=== PATIENT | male | born 1950 | race Caucasian/White ===

== ENCOUNTER → 2017-07-19 | Outpatient (CLI) | payer BC ==
[~2017-07-19] MED LIST: ACET50TAOT PO; ACET65TA OR; CETI10TA OR; CHLO125TA PO; LISI10TA4 OR; METF500T13 PO; PRIL20CA OR; ZANT300T OR; ZEST20TA4 OR; cosopt OU
[2017-07-19 11:00] LABS: MEAN CORPUSCULAR HGB CONC 33.9 g/dl (32.0-36.5); MEAN CORPUSCULAR VOLUME 94.2 fl (80.0-96.0); PLATELET COUNT, AUTOMATED 302 10^3/uL (150-450); RED CELL DISTRIBUTION WIDTH 12.7 % (11.5-14.5); WHITE BLOOD COUNT 8.1 10^3/uL (4.0-10.0)
[2017-07-19 11:19] LABS: INR 0.93
[2017-07-19 11:39] LABS: ALBUMIN 4.1 GM/DL (3.2-5.2); ALBUMIN/GLOBULIN RATIO 1.17 (1.00-1.93); ALKALINE PHOSPHATASE 58 U/L (45-117); ALT/SGPT 27 U/L (12-78); ANION GAP 9 MEQ/L (8-16); AST/SGOT 17 U/L (7-37); BILIRUBIN,TOTAL 0.7 MG/DL (0.2-1.0); BLOOD UREA NITROGEN 22 MG/DL (7-18); CALCIUM LEVEL 9.1 MG/DL (8.8-10.2); CARBON DIOXIDE LEVEL 30 MEQ/L (21-32); CHLORIDE LEVEL 100 MEQ/L (98-107); CREATININE FOR GFR 0.92 MG/DL (0.70-1.30); GLOMERULAR FILTRATION RATE > 60.0 (>49); GLUCOSE, FASTING 120 MG/DL (80-110); POTASSIUM SERUM 3.9 MEQ/L (3.5-5.1); SODIUM LEVEL 139 MEQ/L (136-145); TOTAL PROTEIN 7.6 GM/DL (6.4-8.2)
[2017-07-19 12:32] LABS: ERYTHROCYTE SEDIMENTATION RATE 11 mm/hr (0-20)
--- NOTE | 2017-07-19 18:14 | ECGEPIP ---
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 LA conduction disturbance, leftward axis and prominent voltage in aVL. In keeping with LVH by Brando criteria Q waves in III and aVF with associated repolarization abnormalities in keeping with prior IWMI. No prior tracing for comparison. Clinical correlation advised Electronically Signed On 07-19-2017 18:14:09 EST by Domingo Green
--- NOTE | 2017-07-20 06:31 | REP ---
CHEST X-RAY: CLINICAL: Chest pain with history of diabetes and arthritis. TECHNIQUE: PA and lateral. COMPARISON: 11/10/2015. FINDINGS: Mediastinum and cardiac silhouette are stable with mild cardiomegaly again suggested. The lung robles demonstrate chronic stable changes without acute consolidation, effusion or pneumothorax. Skeletal structures are intact. IMPRESSION: Chronic stable changes and mild cardiomegaly. No acute cardiopulmonary process appreciated. Signed by Sarwat Sanabria MD 07/21/2017 08:52 A
== END ==
LOC: M ADMPAT 09:25
PROVIDERS: ATTEND Orthopaedic Surgery
DX: M16.11 Unilateral primary osteoarthritis, right hip (principal)

== ENCOUNTER 2017-08-01 06:01 | Inpatient (IN) | payer BC, MEDICARE ==
[2017-07-19 09:53] VITALS: BP 132/80
--- NOTE | 2017-07-27 13:07 | HPE ---
DATE OF ADMISSION: 08/01/2017 ATTENDING PHYSICIAN: Dr. Clive Olivera CHIEF COMPLAINT: Right hip pain and stiffness. HISTORY: The patient is a pleasant 66-year-old male with progressively worsening right hip pain and stiffness. He has failed to improve with conservative management. He continues to have symptoms with weightbearing activities and activities of daily living. The patient has consented for an elective right total hip arthroplasty with Dr. Olivera for his continued symptoms. Medical optimization pending with Dr. Rukhsana Borja. CURRENT MEDICATIONS: - Mobic 15 mg daily - Zantac 75 mg daily - omeprazole 10 mg daily - chlorthalidone 25 mg 1/2 tablet by mouth daily - lisinopril 10 mg daily - glucosamine chondroitin daily - Cosopt 22.3/6.8 mg per mL two drops daily - Tylenol 325 mg two tablets by mouth every 6 hours - CoQ10 150 mg daily - metformin 500 mg two tablets by mouth twice daily - Zyrtec 10 mg daily - iron supplements 142 mg daily ALLERGIES: ERYTHROMYCIN. PAST MEDICAL HISTORY: Hypertension. Gastroesophageal reflux disease. Diabetes. Osteoarthritis. PREVIOUS SURGICAL HISTORY: Discectomy. Septoplasty. Right ganglion cyst removal. Arthrotomy for left wrist and hand arthritis. FAMILY HISTORY: Noncontributory. SOCIAL HISTORY: The patient denies tobacco and alcohol use. REVIEW OF SYSTEMS: The patient denies fevers, chills, nausea, vomiting, or diarrhea. Denies chest pain, shortness of breath, lightheadedness, headaches, or abdominal pain. He continues to have right hip pain with activities of daily living and weightbearing activities. PHYSICAL EXAMINATION: Vital signs: Height 70.75 inches, weight 253 pounds, temperature 97.6, blood pressure 124/70, heart rate 88, respirations 16. General: A well nourished, well developed male, who appears to be in no apparent distress. Heart: Regular rate and rhythm. Lungs: Clear to auscultation bilaterally. Abdomen: Soft, nontender to palpation. Bowel sounds are present. Musculoskeletal: Skin is intact over the right hip. There is mild tenderness to palpation laterally and over the groin. The patient has quite limited range of motion of the hip, but the right lower extremity strength is 5/5. There is hip irritability elicited with range of motion. His calf is soft and nontender, but there are multiple varicosities noted. Distally, he is neurovascularly intact. IMAGING: Right hip x-ray is notable for end-stage degenerative changes. LABORATORY DATA: Chest x-ray: Chronic stable changes with mild cardiomegaly. No acute cardiopulmonary process appreciated. Electrocardiogram (EKG): Normal sinus rhythm. LA conduction disturbance, leftward axis and prominent voltage in aVL. Q waves in 3 and aVF with associated repolarization abnormalities in keeping with prior inferior wall myocardial infarction. Nasal and sinus culture: Positive for moderate growth of staphylococcus aureus. Urinalysis: Positive for 4 RBCs per high-power field. Urine culture: No growth of clinical significance, two or more organisms. Prothrombin time: 12.5. INR: 0.93. Comprehensive metabolic profile: Fasting glucose elevated at 120, BUN elevated at 22, creatinine for GFR 0.92, glomerular filtration rate greater than 60, sodium 139, potassium 3.9, chloride 100, carbon dioxide 30, anion gap 9, calcium 9.1, AST 17, ALT 27, alkaline phosphatase 58, total bilirubin 0.7, total protein 7.6, albumin 4.1, albumin globulin ratio 1.17. Complete blood count: WBC is 8.1, RBC is 4.66, hemoglobin 14.9, hematocrit 43.9 , platelets 302, erythrocyte sedimentation rate 11. ASSESSMENT: Right hip degenerative osteoarthritis. PLAN: The patient has consented for an elective right total hip arthroplasty with Dr. Olivera. Medical optimization pending with Dr. Borja. He was treated per protocol based on his nasal and sinus culture results. MTDD
[2017-08-01] VITALS (7 sets, daily range): BP systolic 115–153; BP diastolic 70–91
[~2017-08-01] VITALS: Ht 188 cm; Wt 112.5 kg
[2017-08-01] MEDS ORDERED: LR 1,000 ML IV SCH ×2 (06:15→10:30)
[2017-08-01] MEDS ORDERED: TRANEXAMIC ACID 100 MG/ML 10ML VIAL As Ordered ONE (07:13)
[2017-08-01] MEDS ORDERED: ceFAZolin 1GM INJ (J0690 PER 500MG) As Ordered ONE (07:13)
[2017-08-01] MEDS ORDERED: EPINEPHrine INJ 1 MG/ML 1ML AMP As Ordered ONE (07:14)
[2017-08-01] MEDS ORDERED: MIDAZOLAM INJ 2 MG/2 ML VIAL (J2250) As Ordered ONE (07:37)
[2017-08-01] MEDS ORDERED: fentaNYL 100 MCG/2 ML INJECTION (J3010) As Ordered ONE (07:37)
--- NOTE | 2017-08-01 08:20 | HPE ---
DATE OF ADMISSION: 08/01/2017 The patient seen and examined. He wished to go ahead with a right total hip arthroplasty. He understands the nature of this, the risks of bleeding, infection, damage to nerves, vessels, persistent pain, wear, loosening, dislocation, leg length inequality, blood clots, medical problems, , among others. Preop clearance has been obtained. He denies any allergies to clavulanic acid or penicillin and cross reactors that is noted in the chart so his allergies include HYDROCHLOROTHIAZIDE and ERYTHROMYCIN as far as he knows. We will proceed with a right hip replacement.
[2017-08-01] MEDS ORDERED: PROPOFOL 200 MG/20 ML VIAL As Ordered ONE ×2 (08:33→09:25)
[2017-08-01] MEDS ORDERED: ePHEDrine SULFATE 25 MG/5 ML(5MG/ML) SYRINGE As Ordered ONE ×2 (08:37→08:54)
[2017-08-01] MEDS ORDERED: PHENYLephrine HCL 500 MCG/5 ML (100MCG/ML) SYRINGE (J2370) As Ordered ONE ×2 (08:37→08:54)
[2017-08-01] MEDS ORDERED: MORPHINE 1MG/ML IN 0.9% NACL 100ML IV BAG As Ordered ONE (09:33)
[2017-08-01] MEDS ORDERED: fentaNYL 100 MCG/2 ML INJECTION (J3010) IV PRN (10:30)
[2017-08-01] MEDS ORDERED: MORPHINE 1MG/ML IN 0.9% NACL 100ML IV BAG IV PRN (10:30)
[2017-08-01] MEDS ORDERED: NALOXONE INJ 0.4 MG/1 ML VIAL (J2310) IV PRN (10:30)
[2017-08-01] MEDS ORDERED: EPIDURAL/PCA KEYS XX PRN (10:30)
[2017-08-01] MEDS ORDERED: NALBUPHINE HCL 10 MG/ML AMP (J2300) IV PRN (10:30)
[2017-08-01] MEDS ORDERED: ONDANSETRON 4MG/2ML VIAL (J2405) IV PRN ×2 (10:30→10:45)
[2017-08-01] MEDS ORDERED: diphenhydrAMINE INJ 50MG/ML VIAL (J1200) IV PRN (10:30)
[2017-08-01] MEDS ORDERED: FLEET ENEMA PR PRN (10:45)
[2017-08-01] MEDS ORDERED: ACETAMINOPHEN TAB 650MG DOSE (2X325MG) PO PRN (10:45)
[2017-08-01] MEDS ORDERED: DEXTROSE 50% 50 ML SYRINGE IV PRN (11:30)
[2017-08-01] MEDS ORDERED: CETIRIZINE (ZyrTEC) 10 MG TAB PO SCH (11:30)
[2017-08-01] MEDS ORDERED: GLUCAGON FOR INJ 1 MG VIAL (J1610) SC PRN (11:30)
[2017-08-01] MEDS ORDERED: ACETAMINOPHEN 500 MG TAB PO PRN (11:30)
[2017-08-01] MEDS ORDERED: GLUCOSE 4 GM CHEW TABLET PO PRN (11:30)
[2017-08-01] MEDS: HumaLOG INSULIN (NovoLOG) PER UNIT SC SCH ×3 (12:00→21:00)
[2017-08-01] MEDS: ONDANSETRON 4MG/2ML VIAL (J2405) IV PRN ×2 (12:18→15:27)
--- NOTE | 2017-08-01 13:15 | CR ---
DATE OF CONSULTATION: 08/01/2017 REASON FOR CONSULT: Medical management for Dr. Olivera. SUBJECTIVE: The patient tells me he is feeling well. He has no complaints at this time. Is quite comfortable. OBJECTIVE: Vital signs: Temperature 97.7, pulse 81, respiratory rate 16, blood pressure 139/82, oxygen saturation 99% on 2 liters nasal cannula. General: He is a pleasant, obese, elderly man lying flat in bed. He is examined in the postanesthesia care unit (PACU). He does not appear to be in any acute distress. HEENT: He has a large bushy mccray. He has moist mucous membranes. No appreciable elevation of CVP. Cardiovascular exam: S1, S2, regular. Respiratory exam: Quite clear. Abdominal exam: obese. Bowel sounds are present. The abdomen is soft. Extremities: His right hip dressing is clean, dry and intact. Extremities: No clubbing, cyanosis or edema. LABORATORY: No recent laboratory studies or imaging. ASSESSMENT AND PLAN: This is a 56-year-old man postop day 0 for a right total hip arthroplasty. PROBLEMS: 1. Right total hip arthroplasty. Pain control, deep venous thrombosis (DVT) prophylaxis, physical therapy all is per orthopedic surgery. 2. Gastroesophageal reflux disease. Continue with omeprazole 10 mg. We will provide it to him daily. Normally at home he takes this alternating with Zantac. 3. Hypertension, continue with chlorthalidone, lisinopril with holding parameters. 4. Type 2 diabetes. He tells his hemoglobin A1c was actually quite low and I suspect he can probably be titrated down on his home metformin for the time being. We will hold and provide him with sliding scale insulin coverage as needed. Recommend a consistent carbohydrate diet once he is eating. 5. Deep venous thrombosis (DVT) prophylaxis per orthopedic surgery. DISPOSITION: Will continue to follow the patient while he is hospitalized. He will be followed by Dr. Ray and the hospitalist service. Please do not hesitate to call with any specific questions. Thank you for involving us in this interesting patient's care.
[2017-08-01] MEDS: OMEPRAZOLE 20 MG CAP PO SCH (15:27)
[2017-08-01] MEDS: LR 1,000 ML IV SCH (15:28)
[2017-08-01] MEDS ORDERED: PERCOCET 5MG/325MG TAB PO PRN (16:30)
[2017-08-01] MEDS ORDERED: WARFARIN SOD 5 MG TAB PO ONE (17:00)
[2017-08-01] MEDS: LISINOPRIL 10 MG TAB PO SCH (17:45)
[2017-08-01] MEDS: CHLORTHALIDONE 12.5MG PER 1/2 TABLET PO SCH (17:46)
[2017-08-01] MEDS: ONDANSETRON 4 MG TAB (S0181) PO PRN (20:01)
[2017-08-01] MEDS: MORPHINE 15 MG SA TAB PO SCH (21:00)
[2017-08-02] MEDS: ONDANSETRON 4 MG TAB (S0181) PO PRN ×3 (00:04→12:25)
[2017-08-02] MEDS: PERCOCET 5MG/325MG TAB PO PRN ×3 (00:05→11:07)
[2017-08-02] MEDS: LR 1,000 ML IV SCH (00:07)
[2017-08-02 06:00] VITALS: BP 95/54
[2017-08-02 06:59] LABS: MEAN CORPUSCULAR HEMOGLOBIN 31.4 pg (27.0-33.0); MEAN CORPUSCULAR HGB CONC 33.7 g/dl (32.0-36.5); MEAN CORPUSCULAR VOLUME 93.3 fl (80.0-96.0); PLATELET COUNT, AUTOMATED 245 10^3/uL (150-450); RED CELL DISTRIBUTION WIDTH 12.7 % (11.5-14.5); WHITE BLOOD COUNT 11.9 10^3/uL (4.0-10.0)
[2017-08-02 07:09] LABS: INR 1.19
[2017-08-02 07:48] LABS: ANION GAP 10 MEQ/L (8-16); BLOOD UREA NITROGEN 22 MG/DL (7-18); CALCIUM LEVEL 8.1 MG/DL (8.8-10.2); CARBON DIOXIDE LEVEL 28 MEQ/L (21-32); CHLORIDE LEVEL 99 MEQ/L (98-107); CREATININE FOR GFR 1.04 MG/DL (0.70-1.30); GLOMERULAR FILTRATION RATE > 60.0 (>49); GLUCOSE, FASTING 123 MG/DL (80-110); MAGNESIUM LEVEL 1.8 MG/DL (1.8-2.4); POTASSIUM SERUM 3.5 MEQ/L (3.5-5.1); SODIUM LEVEL 137 MEQ/L (136-145)
[2017-08-02] MEDS: MIRALAX *UNIT DOSE* 17GM PACKET PO SCH (08:46)
[2017-08-02] MEDS: HumaLOG INSULIN (NovoLOG) PER UNIT SC SCH ×4 (08:47→20:35)
[2017-08-02] MEDS: SENOKOT S TAB PO SCH ×2 (08:47→20:36)
[2017-08-02] MEDS: MOM 30ML SUSPENSION UDC PO SCH (08:47)
[2017-08-02] MEDS: COSOPT OCUMETER PLUS 10ML (DORZOLAMIDE/TIMOLOL) OU SCH ×2 (08:48→20:36)
[2017-08-02] MEDS: LISINOPRIL 10 MG TAB PO SCH (08:52)
[2017-08-02] MEDS: CHLORTHALIDONE 12.5MG PER 1/2 TABLET PO SCH (08:52)
[2017-08-02] MEDS: MORPHINE 15 MG SA TAB PO SCH ×2 (08:55→20:36)
[2017-08-02] MEDS: raNITIdine SYRUP 150 MG/10 ML UDC PO SCH (11:07)
--- NOTE | 2017-08-02 11:48 | RO ---
DATE OF PROCEDURE: 08/01/2017 PREOPERATIVE DIAGNOSIS: Right hip osteoarthritis. POSTOPERATIVE DIAGNOSIS: Right hip osteoarthritis. PROCEDURES: Right total hip arthroplasty using a [place] standard size 7 and a +8.5 neck, 36 ball, and a 56 cup. SURGEON: Clive Olivera MD POSTAL SUPERVISOR: RICHARD Wisdom ANESTHESIA: Spinal. ESTIMATED BLOOD LOSS (EBL): 200. COMPLICATIONS: None. INDICATIONS: This is a 66-year-old morbidly obese gentleman who has had a persistent right hip pain. X-rays have shown severe arthritis, and he no longer was responding to conservative management, so he wished to go ahead with a hip replacement. He understood the nature of the procedure, the risks of bleeding, infection, damage to nerves, vessels, persistent pain, wear loosening, dislocation, leg length inequality, blood clots, medical problems, , among others. Preoperative clearance was obtained. DESCRIPTION OF PROCEDURE: The patient taken to the operating room, placed in the left lateral decubitus position on the [place] positioner. All areas were padded appropriately. The right hip was prepped and draped in the usual sterile fashion. A time-out was performed. I then created a longitudinal incision over the lateral aspect of the hip, and sharp dissection was carried down through subcutaneous tissue until the fascia was encountered. I controlled hemostasis with the cautery, incised the fascia, and then divided the anterior 40% of the abductors off of the anterior part of the hip, gradually externally rotating the femur as I exposed the proximal femur. The neck was exposed, the labrum was divided, and we were able to dislocate the hip without difficulty with the health care legal assistant's help. I then used a canal-initiating reamer, followed by the canal-finding reamer, and the lateralizing reamer, and then placed a trial broach to make the neck cut about a fingerbreadth up from the lesser trochanter. I removed the head. Then, I directed our attention to the acetabulum. Removed soft tissue from around the acetabulum after placing retractors, and then I sequentially reamed up to a size 55 reamer, which had good purchase and good bleeding bone. I elected to go with a 56 cup. I was able to medialize the reaming a little bit. I placed the cup in and impacted it in place in appropriate amount of anteversion and horizontal tilt. We made sure the cup was fully seated. I then placed the apex hole eliminator, and the actual polyethylene was inserted, 56 x 56 x 32. This was impacted in place. I removed osteophytes from around the anterior portion of the acetabulum. We directed our attention back to the femur. I sequentially broached up to a size 7. I did have to initially ream with the reamers up to a size 7, and the size 7 broach seemed to fit very nicely. It was a solid fit. I was able to calcar plane down slightly. The trial reduction was performed with the zero, the +5, and the +8.5, and I was most pleased with the 8.5 as far as the length and the soft tissue tension and the minimal shuck in full extension. Had excellent stability in extension external rotation and flexion internal rotation. I had irrigated multiple times prior to cup placement. I again copiously irrigated at this point the canal. I impacted in the size 7 standard [place] stem, made sure it was well seated, and then placed the 8.5 ball on a dry taper and reduced the hip with the health care legal assistant's help, put the hip through a range of motion. I was very pleased with stability and position. Tranexamic acid (TXA) solution was placed. I then closed the deep layer with #1 Vicryl suture. Copious irrigation was performed. I repaired the medius back to the lateral side, the trochanter with #1 Vicryl suture. The fascia xiomara was closed with #1 Vicryl suture in interrupted fashion and a running Stratafix suture. Irrigated, closed the subcutaneous with 2-0 Vicryl, and the skin with shilpi. Sterile dressing was applied. He was taken to recovery room in stable condition. There were no known complications. This is coded as an unusually difficult procedure. The patient was very large and had a very muscular hip. The wound was quite deep and made this much more challenging. I had to make a longer incision as a result. He does have significant obesity. The health care legal assistant was instrumental in holding retractors and reducing and dislocating the hip and assisting in wound closure.
--- NOTE | 2017-08-02 13:11 | IPNPDOC ---
Text Note Date of Service The patient was seen on 08/02/17. NOTE Subjective: Patient was seen and examined at the bedside. Currently he notes that he is not in much pain. He is tolerating his meals. Denies any events overnight. Objective: Vitals (See below) General: Lying in bed, no acute distress, comfortable, AAOx3 HEENT: NC, AT CVS: RRR, +S1S2 Lungs: Fair air entry b/l, -w/r/r Abdomen: Soft, ND, NT Extremities: - Edema, - Calf tenderness, Right hip tenderness Assessment and plan: Right hip pain - s/p Right hip arthroplasty - POD #1 - pain management and anticoagulation as per primary team - will be working with physical therapy today HTN - BP well controlled - Will c/w Lisinopril and Chlorthalidone, will holding parameters DM2 - c/w ISS while inpatient GERD - c/w Omeprazole - Will add Famotidine DVT prophylaxis - as per primary team VS,Fishbone, I+O VS, Fishbone, I+O Laboratory Tests 08/02/17 06:32 Calcium Level 8.1 L 08/02/17 06:37 Red Blood Count 4.01 L, Mean Corpuscular Volume 93.3, Mean Corpuscular Hemoglobin 31.4, Mean Corpuscular Hemoglobin Concent 33.7, Red Cell Distribution Width 12.7 Vital Signs Date Time Temp Pulse Resp B/P (MAP) Pulse Ox O2 Delivery O2 Flow Rate FiO2 08/02/17 11:37 16 08/02/17 07:24 Room Air 98 08/02/17 06:54 95 08/02/17 06:00 98.8 95 95/54 (68) 2.0 I&O- Last 24 Hours up to 6 AM 08/02/17 06:00 Intake Total 1500 ml Output Total 1800 ml Balance -300 ml GRACY MARTINEZ MD Aug 02, 2017 13:11
[2017-08-02 14:00] VITALS: BP 112/58
[2017-08-02] MEDS ORDERED: WARFARIN SOD 5 MG TAB PO ONE (17:00)
--- NOTE | 2017-08-02 18:22 | REP ---
Clinical: Status post arthroplasty. Technique: AP and cross-table lateral views. Findings: The patient is status post right hip replacement with normal positioning and appearance to the femoral and acetabular components. Overlying postsurgical changes appreciated. Impression: Satisfactory right hip replacement radiographs. Signed by Sarwat Sanabria MD 08/02/2017 03:14 P
[2017-08-02 21:00] VITALS: O2SAT 95
[2017-08-02 22:00] VITALS: BP 117/64
[2017-08-03 06:00] VITALS: BP 126/74
[2017-08-03 07:13] LABS: MEAN CORPUSCULAR HEMOGLOBIN 31.7 pg (27.0-33.0); MEAN CORPUSCULAR HGB CONC 33.5 g/dl (32.0-36.5); MEAN CORPUSCULAR VOLUME 94.6 fl (80.0-96.0); PLATELET COUNT, AUTOMATED 234 10^3/uL (150-450); WHITE BLOOD COUNT 14.1 10^3/uL (4.0-10.0)
[2017-08-03 07:21] LABS: INR 1.36
[2017-08-03] MEDS: MOM 30ML SUSPENSION UDC PO SCH (08:29)
[2017-08-03] MEDS: HumaLOG INSULIN (NovoLOG) PER UNIT SC SCH ×4 (08:29→20:59)
[2017-08-03] MEDS: CHLORTHALIDONE 12.5MG PER 1/2 TABLET PO SCH (08:30)
[2017-08-03] MEDS: MIRALAX *UNIT DOSE* 17GM PACKET PO SCH (08:30)
[2017-08-03] MEDS: raNITIdine SYRUP 150 MG/10 ML UDC PO SCH (08:30)
[2017-08-03] MEDS: OMEPRAZOLE 20 MG CAP PO SCH (08:30)
[2017-08-03] MEDS: LISINOPRIL 10 MG TAB PO SCH (08:31)
[2017-08-03] MEDS: traMADol 50 MG TAB PO PRN ×2 (08:31→17:33)
[2017-08-03] MEDS: COSOPT OCUMETER PLUS 10ML (DORZOLAMIDE/TIMOLOL) OU SCH ×2 (08:31→20:43)
[2017-08-03] MEDS: SENOKOT S TAB PO SCH ×2 (08:31→20:41)
[2017-08-03] MEDS: MORPHINE 15 MG SA TAB PO SCH ×2 (08:32→20:42)
--- NOTE | 2017-08-03 11:46 | IPNPDOC ---
Text Note Date of Service The patient was seen on 08/03/17. NOTE Subjective: Patient was seen and examined at the bedside. His BP yesterday was noted to be on the lower side of normal and his BP medications were held. He denies any symptoms; denies chest pain, SOB or palpitations. He notes that he is passing gas, but not had a bowel movement yet. He continues to work with physical therapy. Objective: Vitals (See below) General: Lying in bed, no acute distress, comfortable, AAOx3 HEENT: NC, AT CVS: RRR, +S1S2 Lungs: Fair air entry b/l, -w/r/r Abdomen: Soft, ND, NT Extremities: - Edema, - Calf tenderness, Right hip tenderness Assessment and plan: Right hip pain - s/p Right hip arthroplasty - POD #2 - pain management and anticoagulation as per primary team - will be working with physical therapy today HTN - BP well controlled - c/w Lisinopril & Chlorthalidone with holding parameters - May need to discharge without blood pressure medications and follow up with Primary care DM2 - c/w ISS while inpatient GERD - c/w Omeprazole and Famotidine DVT prophylaxis - as per primary team VS,Tana, I+O VS, Tana, I+O Laboratory Tests 08/03/17 06:57 Red Blood Count 3.88 L, Mean Corpuscular Volume 94.6, Mean Corpuscular Hemoglobin 31.7, Mean Corpuscular Hemoglobin Concent 33.5, Red Cell Distribution Width 13.0 Vital Signs Date Time Temp Pulse Resp B/P (MAP) Pulse Ox O2 Delivery O2 Flow Rate FiO2 08/03/17 09:01 16 08/03/17 08:31 111/71 08/03/17 06:00 99.6 105 95 NIPPV (BIPAP/CPAP) 08/02/17 07:24 98 08/02/17 06:00 2.0 I&O- Last 24 Hours up to 6 AM 08/03/17 06:00 Intake Total 1220 ml Output Total 920 ml Balance 300 ml GRACY MARTINEZ MD Aug 03, 2017 11:46
[2017-08-03 14:00] VITALS: BP 119/58
[2017-08-03] MEDS ORDERED: WARFARIN SOD 7.5 MG TAB PO ONE (17:00)
[2017-08-03 21:00] VITALS: O2SAT 98
[2017-08-03 22:00] VITALS: BP 140/69
[2017-08-04 06:00] VITALS: BP 139/88
[2017-08-04 06:46] LABS: INR 1.42
[2017-08-04] MEDS: traMADol 50 MG TAB PO PRN ×2 (07:00→15:28)
[2017-08-04 07:38] LABS: BASO % 0.3 % (0.0-1.0); EOS # 0.1 10^3/uL (0.0-0.50); EOS % 0.4 % (0.0-3.0); IMMATURE GRANULOCYTE % 0.9 % (0-0); LYMPH # 1.6 10^3/uL (1.5-4.5); LYMPH % 12.7 % (24.0-44.0); MEAN CORPUSCULAR HEMOGLOBIN 31.8 pg (27.0-33.0); MEAN CORPUSCULAR HGB CONC 33.3 g/dl (32.0-36.5); MEAN CORPUSCULAR VOLUME 95.5 fl (80.0-96.0); MONO % 17.5 % (0.0-5.0); NEUTROPHILS # 8.3 10^3/uL (1.8-7.7); NEUTROPHILS % 68.2 % (36.0-66.0); PLATELET COUNT, AUTOMATED 243 10^3/uL (150-450); RED CELL DISTRIBUTION WIDTH 12.7 % (11.5-14.5); WHITE BLOOD COUNT 12.2 10^3/uL (4.0-10.0)
[2017-08-04 07:52] LABS: ALBUMIN 2.8 GM/DL (3.2-5.2); ALKALINE PHOSPHATASE 47 U/L (45-117); ALT/SGPT 16 U/L (12-78); ANION GAP 7 MEQ/L (8-16); AST/SGOT 21 U/L (7-37); BILIRUBIN,TOTAL 0.8 MG/DL (0.2-1.0); BLOOD UREA NITROGEN 20 MG/DL (7-18); CALCIUM LEVEL 8.2 MG/DL (8.8-10.2); CARBON DIOXIDE LEVEL 31 MEQ/L (21-32); CHLORIDE LEVEL 99 MEQ/L (98-107); CREATININE FOR GFR 0.79 MG/DL (0.70-1.30); GLOMERULAR FILTRATION RATE > 60.0 (>49); GLUCOSE, FASTING 122 MG/DL (80-110); MAGNESIUM LEVEL 2.3 MG/DL (1.8-2.4); POTASSIUM SERUM 3.5 MEQ/L (3.5-5.1); SODIUM LEVEL 137 MEQ/L (136-145); TOTAL PROTEIN 6.3 GM/DL (6.4-8.2)
[2017-08-04 07:54] LABS: MONO # 2.1 10^3/uL (0.0-0.8); POSITIVE DIFF POS FLAG
[2017-08-04] MEDS ORDERED: TRAM50TA2 PO (08:01)
[2017-08-04] MEDS ORDERED: COUM2.5T17 PO (08:01)
[2017-08-04] MEDS: MOM 30ML SUSPENSION UDC PO SCH (08:03)
[2017-08-04] MEDS: MIRALAX *UNIT DOSE* 17GM PACKET PO SCH (08:03)
[2017-08-04] MEDS: raNITIdine SYRUP 150 MG/10 ML UDC PO SCH ×2 (08:04→09:00)
[2017-08-04] MEDS: COSOPT OCUMETER PLUS 10ML (DORZOLAMIDE/TIMOLOL) OU SCH (08:04)
[2017-08-04] MEDS: HumaLOG INSULIN (NovoLOG) PER UNIT SC SCH ×2 (08:04→12:15)
[2017-08-04] MEDS: MORPHINE 15 MG SA TAB PO SCH (08:05)
[2017-08-04] MEDS: CHLORTHALIDONE 12.5MG PER 1/2 TABLET PO SCH (08:05)
[2017-08-04] MEDS: SENOKOT S TAB PO SCH (08:05)
[2017-08-04 08:06] VITALS: BP 139/88
[2017-08-04] MEDS: LISINOPRIL 10 MG TAB PO SCH (08:06)
[2017-08-04] MEDS ORDERED: ENOXAPARIN 40 MG/0.4 ML SYRINGE (J1650) SC ONE (08:15)
[2017-08-04 10:00] VITALS: BP 120/66
--- NOTE | 2017-08-04 10:52 | IPNPDOC ---
Text Note Date of Service The patient was seen on 08/04/17. NOTE Subjective: Patient was seen and examined at the bedside. He reports that he has been progressing with physical therapy. He denies any events overnight. He notes that he feels better and his blood pressure has been doing better; he will receive his BP meds today. Objective: Vitals (See below) General: Lying in bed, no acute distress, comfortable, AAOx3 HEENT: NC, AT CVS: RRR, +S1S2 Lungs: Fair air entry b/l, -w/r/r Abdomen: Soft, ND, NT Extremities: - Edema, - Calf tenderness, Right hip tenderness Assessment and plan: Right hip pain - s/p Right hip arthroplasty - POD #3 - pain management and anticoagulation as per primary team - Has been cleared by physical therapy - Will be discharged today with outpatient follow up with PT HTN - BP well controlled; mildly elevated this morning - c/w Lisinopril & Chlorthalidone with holding parameters - Can continue same as outpatient DM2 - c/w ISS while inpatient GERD - c/w Omeprazole and Famotidine DVT prophylaxis - as per primary team Disposition: - Plan on discharge today with outpatient follow up with Orthopedic surgery and PCP VS,Tana, I+O VS, Tana, I+O Laboratory Tests 08/04/17 06:20 Red Blood Count 3.77 L, Mean Corpuscular Volume 95.5, Mean Corpuscular Hemoglobin 31.8, Mean Corpuscular Hemoglobin Concent 33.3, Red Cell Distribution Width 12.7, Neutrophils (%) (Auto) 68.2 H, Lymphocytes (%) (Auto) 12.7 L, Monocytes (%) (Auto) 17.5 H, Eosinophils (%) (Auto) 0.4, Basophils (%) ( Auto) 0.3, Neutrophils # (Auto) 8.3 H, Lymphocytes # (Auto) 1.6, Monocytes # ( Auto) 2.1 H, Eosinophils # (Auto) 0.1, Basophils # (Auto) 0.0, Calcium Level 8.2 L, Aspartate Amino Transf (AST/SGOT) 21, Alanine Aminotransferase (ALT/SGPT ) 16, Alkaline Phosphatase 47, Total Bilirubin 0.8, Total Protein 6.3 L, Albumin 2.8 L Vital Signs Date Time Temp Pulse Resp B/P (MAP) Pulse Ox O2 Delivery O2 Flow Rate FiO2 08/04/17 08:06 139/88 08/04/17 08:05 20 08/04/17 07:00 92 Room Air 08/04/17 06:00 97.9 99 08/02/17 07:24 98 08/02/17 06:00 2.0 I&O- Last 24 Hours up to 6 AM 08/04/17 06:00 Intake Total 2040 ml Output Total 400 ml Balance 1640 ml GRACY MARTINEZ MD Aug 04, 2017 10:52
[2017-08-04 14:00] VITALS: BP 131/70
[2017-08-04] MEDS ORDERED: WARFARIN SOD 7.5 MG TAB PO ONE (17:00)
--- NOTE | 2017-08-08 10:20 | DSES ---
DATE OF ADMISSION: 08/01/2017 DATE OF DISCHARGE: 08/04/2017 HISTORY OF PRESENT ILLNESS: This is a pleasant 66-year-old male with worsening right hip pain and stiffness. He was consented for right total hip arthroplasty per Dr. Clive Olivera. Medical optimization was achieved per Dr. Rukhsana Borja. X-rays were consistent with advanced osteoarthritis. OPERATION PERFORMED: Right total hip arthroplasty. HOSPITAL COURSE: The patient uneventfully underwent right total hip arthroplasty and 08/01/17 under spinal anesthesia and was returned to recovery comfortable. Our hospital team felt with the patient was ready for discharge on 08/04/2017 with the following instructions. Weightbearing as tolerated with a walker, Percocet as needed for pain. Diet is regular. Coumadin and thromboembolic deterrent stockings (TEDS) for 30 days. Optifoam dressing change in 3-4 days time, and a followup at [facility] ortho clinic for wound check and staple removal in 12-14 days. The patient is encouraged to contact our office with increased pain, numbness, tingling, drainage, redness, fever greater than 101 or further concerns. CELINE
== END 2017-08-04 16:58 | disposition home health service (06) | DRG 301 ==
LOC: M OR 06:01 → M MS5PR 13:10 → UNDODISIN 08-04 16:45
PROVIDERS: ADMIT Orthopaedic Surgery; ATTEND Orthopaedic Surgery
PROC: 0SR902Z Replacement of Right Hip Joint with Metal on Polyethylene Synthetic Substitute, Open Approach (ICD-10-PCS; principal; 2017-08-01 07:51)
DX: M16.11 Unilateral primary osteoarthritis, right hip (principal); E66.9 Obesity, unspecified; I10 Essential (primary) hypertension; Z68.35 Body mass index [BMI] 35.0-35.9, adult; K21.9 Gastro-esophageal reflux disease without esophagitis; E11.9 Type 2 diabetes mellitus without complications; Z79.84 Long term (current) use of oral hypoglycemic drugs; Z79.899 Other long term (current) drug therapy

== ENCOUNTER → 2017-08-08 | Outpatient (REF) | payer BC, MEDICARE ==
[~2017-08-08] MED LIST changes: +COUM2.5T17 PO; +TRAM50TA2 PO
[2017-08-08 18:13] LABS: INR 2.42
== END ==
LOC: M SHH 16:34
PROVIDERS: ATTEND Nurse Practitioner Family
DX: Z79.01 Long term (current) use of anticoagulants (principal)

== ENCOUNTER → 2017-08-10 | Outpatient (REF) | payer BC, MEDICARE ==
[2017-08-10 16:14] LABS: INR 2.18
== END ==
LOC: M SHH 15:52
DX: Z79.01 Long term (current) use of anticoagulants (principal)
CPT/HCPCS: 85610

== ENCOUNTER → 2017-08-15 | Outpatient (REF) | payer BC, MEDICARE ==
[2017-08-15 12:27] LABS: INR 1.83; PROTHROMBIN TIME 21.7 SECONDS (12.4-14.5)
== END ==
LOC: M SHH 11:47
DX: Z51.81 Encounter for therapeutic drug level monitoring (principal); Z79.01 Long term (current) use of anticoagulants
CPT/HCPCS: 85610

== ENCOUNTER → 2017-08-17 | Outpatient (CLI) | payer BC ==
[2017-08-17 16:11] LABS: URIC ACID 7.6 MG/DL (3.5-7.2)
[2017-08-17 16:22] LABS: PROTHROMBIN TIME 17.5 SECONDS (12.4-14.5)
== END ==
LOC: M SMT 12:02
DX: Z79.01 Long term (current) use of anticoagulants (principal); M79.675 Pain in left toe(s)
CPT/HCPCS: 84550

== ENCOUNTER → 2017-08-21 | Outpatient (REF) | payer BC ==
[2017-08-21 14:17] LABS: INR 1.95; PROTHROMBIN TIME 22.9 SECONDS (12.4-14.5)
== END ==
LOC: M SHH 13:39
DX: Z79.01 Long term (current) use of anticoagulants (principal)
CPT/HCPCS: 85610

== ENCOUNTER → 2017-08-24 | Outpatient (REF) | payer BC ==
[2017-08-24 11:29] LABS: INR 1.95; PROTHROMBIN TIME 22.9 SECONDS (12.4-14.5)
== END ==
LOC: M LAB REF 11:06
DX: Z79.01 Long term (current) use of anticoagulants (principal)
CPT/HCPCS: 85610

== ENCOUNTER → 2017-08-28 | Outpatient (REF) | payer BC ==
[2017-08-28 12:15] LABS: INR 1.61; PROTHROMBIN TIME 19.6 SECONDS (12.4-14.5)
== END ==
LOC: M SHH 11:52
DX: Z79.01 Long term (current) use of anticoagulants (principal)
CPT/HCPCS: 85610

== ENCOUNTER 2019-08-15 15:57 | Emergency (ER) | payer BC ==
[~2019-08-15] VITALS: Ht 185.4 cm; Wt 107.6 kg
[~2019-08-15 15:57] MED LIST changes: +ACET500T15 PO; -ACET50TAOT PO
[2019-08-15 17:03] LABS: INFLUENZA A AMPLIFICATION NEGATIVE (NEGATIVE); INFLUENZA B AMPLIFICATION POSITIVE (NEGATIVE)
[2019-08-15] MEDS ORDERED: [UNRECOGNIZED DRUG - CODE] PO (19:24)
[2019-08-15] MEDS ORDERED: FAMO20TA PO (19:24)
[2019-08-15] MEDS ORDERED: D3-5CAP PO (19:24)
[2019-08-15] MEDS ORDERED: MELO15TA28 PO (19:24)
[2019-08-15] MEDS ORDERED: OCUVCAP2 PO (19:24)
[2019-08-15 20:09] VITALS: BP 109/72
[2019-08-15] MEDS ORDERED: ACETAMINOPHEN 325 MG TAB PO ONE (20:15)
[2019-08-15] MEDS ORDERED: ONDA4TAB6 PO (20:24)
[2019-08-15] MEDS ORDERED: BENZ200C70 PO (20:24)
--- NOTE | 2019-08-15 20:32 | REP ---
HISTORY: Cough and fever. COMPARISON: 07/19/2017, the latest prior. The lung robles are hypoexpanded. The cardiac silhouette is magnified by technique. There is mild cardiomegaly. The pleural angles are sharp. The osseous structures are stable and intact. IMPRESSION: Technique as described above. There is no definite evidence of acute cardiopulmonary disease. Electronically Signed by Carlo Aragon DO 08/16/2019 12:33 P
== END 2019-08-15 20:42 | disposition home or self-care (01) ==
LOC: M ED 15:57
DX: J10.1 Influenza due to other identified influenza virus with other respiratory manifestations (principal); R50.9 Fever, unspecified; Z20.89 Contact with and (suspected) exposure to other communicable diseases; I10 Essential (primary) hypertension; G47.30 Sleep apnea, unspecified; K57.30 Diverticulosis of large intestine without perforation or abscess without bleeding; Z87.19 Personal history of other diseases of the digestive system; Z87.39 Personal history of other diseases of the musculoskeletal system and connective tissue; Z86.2 Personal history of diseases of the blood and blood-forming organs and certain disorders involving the immune mechanism; Z79.899 Other long term (current) drug therapy; Z88.1 Allergy status to other antibiotic agents; Z88.8 Allergy status to other drugs, medicaments and biological substances

== ENCOUNTER → 2021-12-28 | Outpatient (REF) | payer OTHER, BC ==
[~2021-12-28] MED LIST changes: +BENZ200C70 PO; +D3-5CAP PO; +FAMO20TA PO; +MELO15TA28 PO; +OCUVCAP2 PO; +ONDA4TAB6 PO; +[UNRECOGNIZED DRUG - CODE] PO
== END ==
LOC: M LAB REF 10:23
PROVIDERS: ATTEND Podiatrist
DX: L03.032 Cellulitis of left toe (principal); M79.672 Pain in left foot

== ENCOUNTER → 2022-05-19 | Outpatient (CLI) | payer OTHER, BC | LOC: M PLAIMG 10:18 → M WUC 10:18 | DX: M43.16 Spondylolisthesis, lumbar region (principal); M46.96 Unspecified inflammatory spondylopathy, lumbar region ==

== ENCOUNTER → 2022-09-15 | Outpatient (CLI) | payer BC, MEDICARE | LOC: M RAD 13:18 | PROVIDERS: ATTEND Physician Assistant | DX: J32.8 Other chronic sinusitis (principal) ==

== ENCOUNTER → 2023-06-15 | Outpatient (REF) | payer OTHER, BC | LOC: M LAB REF 16:42 | PROVIDERS: ATTEND Podiatrist | DX: L03.129 Acute lymphangitis of unspecified part of limb (principal) ==

== ENCOUNTER 2024-07-06 19:23 | Inpatient (IN) | payer OTHER ==
[~2024-07-06] VITALS: Ht 167.6 cm; Wt 96.4 kg
[~2024-07-06 19:23] MED LIST changes: +ONDA-282 PO; -ONDA4TAB6 PO
[2024-07-06 20:54] LABS: HEMATOCRIT 39.9 % (42.0-52.0); HEMOGLOBIN 13.2 g/dl (13.5-17.5); MEAN CORPUSCULAR HEMOGLOBIN 31.5 pg (27.0-33.0); MEAN CORPUSCULAR HGB CONC 33.1 g/dl (32.0-36.5); MEAN CORPUSCULAR VOLUME 95.2 fl (80.0-96.0); PLATELET COUNT, AUTOMATED 241 10^3/uL (150-450); RED BLOOD COUNT 4.19 10^6/uL (4.30-6.10); WHITE BLOOD COUNT 13.8 10^3/uL (4.0-10.0)
[2024-07-06 21:02] LABS: ERYTHROCYTE SEDIMENTATION RATE 33 mm/hr (0-20)
[2024-07-06 21:32] LABS: BLOOD UREA NITROGEN 27 MG/DL (9-23); CALCIUM LEVEL 9.5 MG/DL (8.3-10.6); CARBON DIOXIDE LEVEL 25 MMOL/L (20-31); CHLORIDE LEVEL 100 MMOL/L (98-107); GLOMERULAR FILTRATION RATE > 60.0 (>42); GLUCOSE, FASTING 106 MG/DL (74-106); POTASSIUM SERUM 3.5 MMOL/L (3.5-5.1); SODIUM LEVEL 135 MMOL/L (136-145)
[2024-07-06] MEDS: VANCOMYCIN/WATER FOR INJ (PEG) 2,000 MG in IV 1 EA IV ONE (22:07)
[2024-07-06] MEDS: IBUPROFEN 600MG TAB PO ONE (23:16)
[2024-07-06] MEDS ORDERED: GLUCOSE 4 GM CHEW PO PRN (23:45)
[2024-07-06] MEDS ORDERED: GLUCAGON INJ 1MG VIAL SC PRN (23:45)
[2024-07-06] MEDS ORDERED: MAALOX 30 ML SUSP *UDC PO PRN (23:45)
[2024-07-06] MEDS ORDERED: DEXTROSE 50% 50ML SYRINGE IV PRN (23:45)
[2024-07-06] MEDS ORDERED: MOM 30ML SUSPENSION UDC PO PRN (23:45)
[2024-07-07] MEDS: SODIUM CHLORIDE 0.9% 1000 ML IV STA (00:43)
[2024-07-07] MEDS: PIPERACILLIN/TAZOBACTAM SOD 4.5 GM in DEXTROSE 5% (D5W) ADV/MINI-BAG 50 ML IV SCH (00:44)
[2024-07-07 00:58] LABS: VENOUS BASE EXCESS 0.9 (-2.0-2.0); VENOUS O2 SATURATION 82.3 % (60.0-80.0); VENOUS PARTIAL PRESSURE CO2 38.2 mmHg (38.0-50.0); VENOUS PARTIAL PRESSURE O2 46.2 mmHg (30.0-50.0); VENOUS PH 7.433 UNITS (7.330-7.430); VENOUS STANDARD HCO3 24.9 MMOL/L; VENOUS TOTAL CO2 26.1 MMOL/L (24.0-28.0)
[2024-07-07 01:03] LABS: BASO # 0.1 10^3/uL (0.0-0.2); BASO % 0.4 % (0.0-1.0); EOS % 0.2 % (0.0-3.0); HEMATOCRIT 37.6 % (42.0-52.0); HEMOGLOBIN 12.6 g/dl (13.5-17.5); MEAN CORPUSCULAR HEMOGLOBIN 32.1 pg (27.0-33.0); MEAN CORPUSCULAR HGB CONC 33.5 g/dl (32.0-36.5); MEAN CORPUSCULAR VOLUME 95.9 fl (80.0-96.0); MONO # 1.5 10^3/uL (0.0-0.8); MONO % 10.3 % (2.0-8.0); NEUTROPHILS # 11.8 10^3/uL (1.5-8.5); NEUTROPHILS % 81.7 % (36.0-66.0); PLATELET COUNT, AUTOMATED 229 10^3/uL (150-450); RED BLOOD COUNT 3.92 10^6/uL (4.30-6.10); WHITE BLOOD COUNT 14.4 10^3/uL (4.0-10.0)
[2024-07-07 01:16] LABS: INR 1.05; PARTIAL THROMBOPLASTIN TIME 37.1 SECONDS (24.8-34.2)
[2024-07-07 01:27] LABS: ALBUMIN 3.6 G/DL (3.2-5.2); BILIRUBIN,DIRECT 0.3 MG/DL (<0.4); BILIRUBIN,TOTAL 0.9 MG/DL (0.3-1.2); MAGNESIUM LEVEL 1.5 MG/DL (1.8-2.4); TOTAL PROTEIN 6.7 G/DL (5.7-8.2)
[2024-07-07 01:32] VITALS: BP 116/75; TEMP 99.8; O2SAT 93
[2024-07-07] MEDS ORDERED: TIZA10TA PO (01:34)
[2024-07-07] MEDS ORDERED: ALLO100T PO (01:34)
[2024-07-07] MEDS ORDERED: COLC0.6T47 PO (01:34)
[2024-07-07] MEDS ORDERED: OMEP1CAP73 PO (01:34)
[2024-07-07] MEDS ORDERED: SERT50TA29 PO (01:34)
[2024-07-07] MEDS ORDERED: METF-838 PO (01:34)
[2024-07-07] MEDS ORDERED: LISI10TA22 PO (01:34)
[2024-07-07] MEDS ORDERED: VITA200012 PO (01:34)
[2024-07-07] MEDS ORDERED: MULT-90 PO (01:34)
[2024-07-07] MEDS ORDERED: ACET1TAB55 PO (01:34)
[2024-07-07] MEDS ORDERED: FLON1SPR NARES (01:34)
[2024-07-07] MEDS ORDERED: DORZ2SOL5 OU (01:34)
[2024-07-07] MEDS ORDERED: TAMS1CAP17 PO (01:34)
[2024-07-07] MEDS ORDERED: CETI10CH PO (01:34)
[2024-07-07] MEDS ORDERED: HOME MED LIST COMPLETE! XX SCH (01:40)
[2024-07-07] MEDS: ACETAMINOPHEN 325 MG TAB PO PRN (01:51)
[2024-07-07 02:12] LABS: ABG BASE EXCESS -1.2 (-2.0-2.0); ABG HCO3 21.6 MMOL/L (22.0-26.0); ABG O2 SATURATION 98.1 % (95.0-99.0); ABG PARTIAL PRESSURE CO2 30.8 mmHg (35.0-45.0); ABG PARTIAL PRESSURE O2 101.7 mmHg (75.0-100.0); ABG STANDARD HCO3 23.5 MMOL/L. (22.0-26.0); ABG TOTAL CO2 22.6 MMOL/L (23.0-31.0); ABG pH (ARTERIAL) 7.464 UNITS (7.350-7.450)
[2024-07-07] MEDS: MAGNESIUM OXIDE 400MG TAB (MAG-OX) PO ONE (02:44)
[2024-07-07 03:47] VITALS: BP 117/73; TEMP 99.3; O2SAT 96
[2024-07-07 06:19] LABS: HEMATOCRIT 36.6 % (42.0-52.0); HEMOGLOBIN 11.9 g/dl (13.5-17.5); MEAN CORPUSCULAR HEMOGLOBIN 31.7 pg (27.0-33.0); MEAN CORPUSCULAR HGB CONC 32.5 g/dl (32.0-36.5); MEAN CORPUSCULAR VOLUME 97.6 fl (80.0-96.0); PLATELET COUNT, AUTOMATED 214 10^3/uL (150-450); RED BLOOD COUNT 3.75 10^6/uL (4.30-6.10); WHITE BLOOD COUNT 12.9 10^3/uL (4.0-10.0)
[2024-07-07 06:54] LABS: PROCALCITONIN 0.13 ng/ml
[2024-07-07 07:00] LABS: ALBUMIN 3.1 G/DL (3.2-5.2); ALKALINE PHOSPHATASE 50 U/L (40-129); ALT/SGPT 12 U/L (7.0-40); AST/SGOT 21 U/L (<34); BILIRUBIN,TOTAL 0.9 MG/DL (0.3-1.2); BLOOD UREA NITROGEN 19 MG/DL (9-23); CALCIUM LEVEL 8.5 MG/DL (8.3-10.6); CARBON DIOXIDE LEVEL 23 MMOL/L (20-31); CHLORIDE LEVEL 107 MMOL/L (98-107); CREATININE FOR GFR 0.84 MG/DL (0.70-1.30); GLOMERULAR FILTRATION RATE > 60.0 (>42); GLUCOSE, FASTING 96 MG/DL (74-106); MAGNESIUM LEVEL 1.5 MG/DL (1.8-2.4); POTASSIUM SERUM 3.4 MMOL/L (3.5-5.1); SODIUM LEVEL 139 MMOL/L (136-145); TOTAL PROTEIN 6.1 G/DL (5.7-8.2)
[2024-07-07] MEDS: INSULIN LISPRO (NovoLOG) PER UNIT SC SCH ×2 (07:30→21:00)
[2024-07-07 08:00] VITALS: BP 113/73; TEMP 99.1; O2SAT 98
[2024-07-07] MEDS: DOCUSATE SODIUM 100MG CAPSULE PO SCH (08:47)
[2024-07-07] MEDS: FAMOTIDINE 20 MG TAB PO SCH (08:48)
[2024-07-07] MEDS: ENOXAPARIN 40MG/0.4ML SYRINGE (J1650 PER 10MG) SC SCH (08:48)
[2024-07-07] MEDS: TAMSULOSIN 0.4 MG CAP PO SCH (08:48)
[2024-07-07] MEDS: allopurinoL 100 MG TAB PO SCH (08:48)
[2024-07-07] MEDS: MAGNESIUM OXIDE 400MG TAB (MAG-OX) PO SCH (08:48)
[2024-07-07] MEDS: KETOROLAC 30 MG/ML 1ML VIAL IV PRN ×2 (08:49→15:59)
[2024-07-07] MEDS: COSOPT OCUMETER PLUS 10ML (DORZOLAMIDE/TIMOLOL) OU SCH (11:00)
[2024-07-07] MEDS: VANCOMYCIN/WATER FOR INJ 1,000 MG in IV 1 EA IV SCH (11:33)
[2024-07-07 12:00] VITALS: BP 124/74; TEMP 100.1; O2SAT 98
[2024-07-07] MEDS: POTASSIUM CHLORIDE 10MEQ SR TABLET PO ONE (12:43)
[2024-07-07] MEDS: MAG SULF 1GM/100ML (MAG RUN) 1 GM in IV 1 EA IV ONE (13:48)
[2024-07-07 16:00] VITALS: BP 125/74; TEMP 100.6; O2SAT 98
[2024-07-07 19:34] VITALS: BP 110/62; TEMP 100.9; O2SAT 93
[2024-07-07] MEDS: SERTRALINE HCL 50 MG TAB PO SCH (21:31)
[2024-07-07] MEDS: tiZANidine 4 MG TAB PO SCH (21:31)
[2024-07-08] VITALS (7 sets, daily range): BP systolic 96–134; BP diastolic 56–86; TEMP 97.4–100.8; O2SAT 92–96
[2024-07-08 05:24] LABS: BASO % 0.3 % (0.0-1.0); EOS # 0.2 10^3/uL (0.0-0.5); EOS % 1.9 % (0.0-3.0); HEMATOCRIT 34.4 % (42.0-52.0); HEMOGLOBIN 11.1 g/dl (13.5-17.5); LYMPH # 0.8 10^3/uL (1.5-5.0); LYMPH % 6.7 % (24.0-44.0); MEAN CORPUSCULAR HEMOGLOBIN 31.4 pg (27.0-33.0); MEAN CORPUSCULAR HGB CONC 32.3 g/dl (32.0-36.5); MEAN CORPUSCULAR VOLUME 97.2 fl (80.0-96.0); MONO # 1.4 10^3/uL (0.0-0.8); MONO % 11.8 % (2.0-8.0); NEUTROPHILS # 9.3 10^3/uL (1.5-8.5); NEUTROPHILS % 78.8 % (36.0-66.0); PLATELET COUNT, AUTOMATED 197 10^3/uL (150-450); RED BLOOD COUNT 3.54 10^6/uL (4.30-6.10); WHITE BLOOD COUNT 11.9 10^3/uL (4.0-10.0)
[2024-07-08 05:51] LABS: BLOOD UREA NITROGEN 22 MG/DL (9-23); CALCIUM LEVEL 8.6 MG/DL (8.3-10.6); CARBON DIOXIDE LEVEL 22 MMOL/L (20-31); CHLORIDE LEVEL 108 MMOL/L (98-107); CREATININE FOR GFR 0.93 MG/DL (0.70-1.30); GLOMERULAR FILTRATION RATE > 60.0 (>42); GLUCOSE, FASTING 124 MG/DL (74-106); POTASSIUM SERUM 3.9 MMOL/L (3.5-5.1); SODIUM LEVEL 139 MMOL/L (136-145)
[2024-07-09 04:00] VITALS: BP 122/71; TEMP 97.5; O2SAT 98
[2024-07-09 05:58] LABS: BASO % 0.3 % (0.0-1.0); EOS # 0.5 10^3/uL (0.0-0.5); EOS % 4.5 % (0.0-3.0); HEMATOCRIT 34.3 % (42.0-52.0); HEMOGLOBIN 11.1 g/dl (13.5-17.5); LYMPH # 0.9 10^3/uL (1.5-5.0); LYMPH % 9.1 % (24.0-44.0); MEAN CORPUSCULAR HEMOGLOBIN 31.4 pg (27.0-33.0); MEAN CORPUSCULAR HGB CONC 32.4 g/dl (32.0-36.5); MEAN CORPUSCULAR VOLUME 96.9 fl (80.0-96.0); MONO # 1.3 10^3/uL (0.0-0.8); MONO % 13.2 % (2.0-8.0); NEUTROPHILS # 7.3 10^3/uL (1.5-8.5); NEUTROPHILS % 72.5 % (36.0-66.0); PLATELET COUNT, AUTOMATED 189 10^3/uL (150-450); RED BLOOD COUNT 3.54 10^6/uL (4.30-6.10)
[2024-07-09 06:23] LABS: BLOOD UREA NITROGEN 21 MG/DL (9-23); CALCIUM LEVEL 8.9 MG/DL (8.3-10.6); CARBON DIOXIDE LEVEL 25 MMOL/L (20-31); CHLORIDE LEVEL 107 MMOL/L (98-107); CREATININE FOR GFR 0.88 MG/DL (0.70-1.30); GLOMERULAR FILTRATION RATE > 60.0 (>42); GLUCOSE, FASTING 125 MG/DL (74-106); SODIUM LEVEL 139 MMOL/L (136-145)
[2024-07-09 08:00] VITALS: BP 124/73; TEMP 97.2; O2SAT 95
[2024-07-09] MEDS ORDERED: SODIUM CHLORIDE NASAL 0.65% SPRAY BTL (OCEAN) PRN (11:40)
[2024-07-09 12:00] VITALS: BP 95/61; TEMP 98.5; O2SAT 91
[2024-07-09 16:00] VITALS: BP 124/86; TEMP 99.6; O2SAT 96
[2024-07-09] MEDS: LIDOCAINE 1% MDV 20ML VIAL IM ONE (17:47)
[2024-07-09] MEDS: LACTOBACILLUS ACIDOPHILUS CAP (BACID) PO SCH (17:48)
[2024-07-09 18:55] VITALS: TEMP 100.1
[2024-07-09 20:30] VITALS: BP 90/60; TEMP 98.6; O2SAT 94
[2024-07-09] MEDS: MAGNESIUM OXIDE 400MG TAB (MAG-OX) PO SCH (21:11)
[2024-07-09] MEDS: FLUTICASONE PROP 0.05% NASAL SPRAY 16 GM (FLONASE) NARES SCH (21:13)
[2024-07-10] VITALS: BP 101/54; TEMP 97.9; O2SAT 97
[2024-07-10] MEDS: ceFAZolin SOD 2 GM in IV 1 EA IV SCH (00:42)
[2024-07-10 04:15] VITALS: TEMP 97.7; O2SAT 95
[2024-07-10 06:41] LABS: BASO % 0.4 % (0.0-1.0); EOS # 0.4 10^3/uL (0.0-0.5); EOS % 4.9 % (0.0-3.0); HEMATOCRIT 31.5 % (42.0-52.0); HEMOGLOBIN 10.3 g/dl (13.5-17.5); LYMPH # 1.1 10^3/uL (1.5-5.0); LYMPH % 13.7 % (24.0-44.0); MEAN CORPUSCULAR HEMOGLOBIN 31.9 pg (27.0-33.0); MEAN CORPUSCULAR HGB CONC 32.7 g/dl (32.0-36.5); MEAN CORPUSCULAR VOLUME 97.5 fl (80.0-96.0); MONO # 1.3 10^3/uL (0.0-0.8); MONO % 16.3 % (2.0-8.0); NEUTROPHILS % 64.2 % (36.0-66.0); PLATELET COUNT, AUTOMATED 195 10^3/uL (150-450); RED BLOOD COUNT 3.23 10^6/uL (4.30-6.10); WHITE BLOOD COUNT 7.8 10^3/uL (4.0-10.0)
[2024-07-10 07:15] LABS: BLOOD UREA NITROGEN 21 MG/DL (9-23); CARBON DIOXIDE LEVEL 25 MMOL/L (20-31); CHLORIDE LEVEL 105 MMOL/L (98-107); CREATININE FOR GFR 0.87 MG/DL (0.70-1.30); GLOMERULAR FILTRATION RATE > 60.0 (>42); GLUCOSE, FASTING 111 MG/DL (74-106); SODIUM LEVEL 137 MMOL/L (136-145)
[2024-07-10 08:00] VITALS: BP 127/62; TEMP 98.4; O2SAT 94
[2024-07-10] MEDS: OMEPRAZOLE 20MG CAP PO SCH (09:05)
[2024-07-10 12:00] VITALS: BP 125/70; TEMP 97.7; O2SAT 92
[2024-07-10 12:45] LABS: CLOSTRIDIUM DIFFICILE PCR NEGATIVE (NEGATIVE)
[2024-07-10 20:46] VITALS: BP 111/63; TEMP 98.7; O2SAT 93
[2024-07-11 06:06] LABS: BASO % 0.3 % (0.0-1.0); EOS # 0.4 10^3/uL (0.0-0.5); EOS % 6.6 % (0.0-3.0); HEMATOCRIT 32.1 % (42.0-52.0); HEMOGLOBIN 10.6 g/dl (13.5-17.5); LYMPH # 1.1 10^3/uL (1.5-5.0); LYMPH % 17.8 % (24.0-44.0); MEAN CORPUSCULAR HEMOGLOBIN 31.6 pg (27.0-33.0); MEAN CORPUSCULAR VOLUME 95.8 fl (80.0-96.0); MONO # 1.1 10^3/uL (0.0-0.8); MONO % 17.7 % (2.0-8.0); NEUTROPHILS # 3.5 10^3/uL (1.5-8.5); PLATELET COUNT, AUTOMATED 212 10^3/uL (150-450); RED BLOOD COUNT 3.35 10^6/uL (4.30-6.10); WHITE BLOOD COUNT 6.2 10^3/uL (4.0-10.0)
[2024-07-11 06:30] LABS: BLOOD UREA NITROGEN 18 MG/DL (9-23); CARBON DIOXIDE LEVEL 26 MMOL/L (20-31); CHLORIDE LEVEL 105 MMOL/L (98-107); CREATININE FOR GFR 0.85 MG/DL (0.70-1.30); GLOMERULAR FILTRATION RATE > 60.0 (>42); GLUCOSE, FASTING 109 MG/DL (74-106); MAGNESIUM LEVEL 1.9 MG/DL (1.8-2.4); POTASSIUM SERUM 3.8 MMOL/L (3.5-5.1); SODIUM LEVEL 139 MMOL/L (136-145)
[2024-07-11] MEDS: LOPERAMIDE 2 MG CAPLET PO PRN (08:59)
[2024-07-11 20:00] VITALS: BP 111/73; TEMP 97.9; O2SAT 96
[2024-07-12 04:00] VITALS: BP 134/75; TEMP 97.9; O2SAT 96
[2024-07-12 05:00] LABS: BASO % 0.4 % (0.0-1.0); EOS # 0.4 10^3/uL (0.0-0.5); HEMATOCRIT 32.1 % (42.0-52.0); HEMOGLOBIN 10.5 g/dl (13.5-17.5); LYMPH # 1.5 10^3/uL (1.5-5.0); LYMPH % 19.6 % (24.0-44.0); MEAN CORPUSCULAR HEMOGLOBIN 31.5 pg (27.0-33.0); MEAN CORPUSCULAR HGB CONC 32.7 g/dl (32.0-36.5); MEAN CORPUSCULAR VOLUME 96.4 fl (80.0-96.0); NEUTROPHILS # 4.3 10^3/uL (1.5-8.5); NEUTROPHILS % 58.6 % (36.0-66.0); PLATELET COUNT, AUTOMATED 232 10^3/uL (150-450); RED BLOOD COUNT 3.33 10^6/uL (4.30-6.10); WHITE BLOOD COUNT 7.4 10^3/uL (4.0-10.0)
[2024-07-12 05:30] LABS: BLOOD UREA NITROGEN 18 MG/DL (9-23); CALCIUM LEVEL 8.9 MG/DL (8.3-10.6); CARBON DIOXIDE LEVEL 25 MMOL/L (20-31); CHLORIDE LEVEL 106 MMOL/L (98-107); GLOMERULAR FILTRATION RATE > 60.0 (>42); GLUCOSE, FASTING 94 MG/DL (74-106); POTASSIUM SERUM 4.1 MMOL/L (3.5-5.1); SODIUM LEVEL 139 MMOL/L (136-145)
[2024-07-12] MEDS ORDERED: LOPE2CA PO (07:55)
[2024-07-12] MEDS ORDERED: PROB250C PO (07:55)
[2024-07-12] MEDS ORDERED: CEPH500C PO (08:02)
== END 2024-07-12 12:10 | disposition home or self-care (01) | DRG 854 ==
LOC: M ED 19:23 → M ED INP 23:21 → M MSPAV 07-07 01:15
PROVIDERS: ADMIT Student in an Organized Health Care Education/Training Program; ATTEND Internal Medicine
PROC: 0JDR0ZZ Extraction of Left Foot Subcutaneous Tissue and Fascia, Open Approach (ICD-10-PCS; principal; 2024-07-09)
DX: A41.9 Sepsis, unspecified organism (principal); L03.116 Cellulitis of left lower limb; L02.612 Cutaneous abscess of left foot; K52.1 Toxic gastroenteritis and colitis; E11.628 Type 2 diabetes mellitus with other skin complications; I10 Essential (primary) hypertension; K21.9 Gastro-esophageal reflux disease without esophagitis; G47.33 Obstructive sleep apnea (adult) (pediatric); E87.6 Hypokalemia; E83.42 Hypomagnesemia; B95.61 Methicillin susceptible Staphylococcus aureus infection as the cause of diseases classified elsewhere; E11.621 Type 2 diabetes mellitus with foot ulcer; L97.529 Non-pressure chronic ulcer of other part of left foot with unspecified severity; E11.40 Type 2 diabetes mellitus with diabetic neuropathy, unspecified; T36.95XA Adverse effect of unspecified systemic antibiotic, initial encounter; T47.1X5A Adverse effect of other antacids and anti-gastric-secretion drugs, initial encounter; M19.042 Primary osteoarthritis, left hand; Z96.643 Presence of artificial hip joint, bilateral; Z79.84 Long term (current) use of oral hypoglycemic drugs; Z79.1 Long term (current) use of non-steroidal anti-inflammatories (NSAID); Z79.899 Other long term (current) drug therapy; Z88.1 Allergy status to other antibiotic agents; Z88.8 Allergy status to other drugs, medicaments and biological substances

== ENCOUNTER → 2024-12-23 | Outpatient (CLI) | payer MEDICARE ==
[~2024-12-23] MED LIST changes: +ACET1TAB55 PO; +ALLO100T PO; +CEPH500C PO; +CETI10CH PO; +COLC0.6T47 PO; +DORZ2SOL5 OU; +FLON1SPR NARES; +LISI10TA22 PO; +LOPE2CA PO; +METF-838 PO; +MULT-90 PO; +OMEP1CAP73 PO; +PROB250C PO; +SERT50TA29 PO; +TAMS1CAP17 PO; +TIZA10TA PO; +VITA200012 PO
== END ==
LOC: M WHC 14:23
PROVIDERS: ATTEND Orthopaedic Surgery
DX: Z13.820 Encounter for screening for osteoporosis (principal); M54.50 Low back pain, unspecified